=== PATIENT | female | born 1970 | race Caucasian/White ===

== ENCOUNTER 2016-06-17 17:16 | Emergency (ER) | payer OTHER ==
[~2016-06-17] VITALS: Ht 165.1 cm; Wt 81.2 kg
[~2016-06-17 17:16] MED LIST: ALPR1T PO; ATOR40TA PO; CITA10TA7 PO; DOCU100C37 PO; ENAL20TA PO; HYDR-3812 PO; HYDR-3816 PO; HYDR1TAB PO; IBUP-1773 PO; MEDR10TA PO; MV,C400T3 PO; SIME80TA16 PO
[2016-06-17 18:15] LABS: BILIRUBIN,URINE NEGATIVE (NEGATIVE); KETONES,URINE NEGATIVE (NEGATIVE); LEUKOCYTE ESTERASE ,URINE 3+ (NEGATIVE); NITRITE,URINE POSITIVE (NEGATIVE); PH,URINE 6 (5-9); PROTEIN,URINE 2+ (NEGATIVE); UROBILINOGEN,URINE NORMAL (NORMAL)
[2016-06-17] MEDS ORDERED: NS 100 ML (IVPB) BAG IV ONE (18:15)
[2016-06-17] MEDS ORDERED: IOHEXOL 350 MG/ML 100 ML (OMNIPAQUE 350) VIAL IV ONE (18:15)
[2016-06-17 18:23] LABS: SQUAMOUS EPITHELIAL CELL,UR 0-2 /HPF; WBC,URINE TNTC /HPF
--- NOTE | 2016-06-17 18:33 | ED General ---
General Chief Complaint: Fever-Adult/Adol Stated Complaint: IRREGULAR LAB RESULTS Nursing Triage Note: Pt had fever/chills/sweats yesterday. Today, patient had a syncopal episode at work. C/O headache/neck discomfort. Pt went to Urgent Care earlier today which revealed 20.7 WBC. Pt was then referred to the ER. Pt is awake, alert, and active. Hx of robotic hysterectomy on 05-31-16 Nursing Sepsis Screen: No Definite Risk Source of Information: Patient Exam Limitations: No Limitations History of Present Illness Time Seen by Provider: 18:31 Initial Comments To ER with reports of chills, nausea, dizziness and headache and neck ache for the past 2 days. She was seen at urgent care earlier this afternoon and had labs drawn which showed a white blood cell count of 20.7 and she was referred to the emergency room. She had a robotic hysterectomy on 05/31/[address] Mon and reports no problems with that and minimal right flank pain. She reports a chronic cough unchanged in nature no more or less productive than usual, no pharyngitis, no dysuria Associated Systoms: Fever/Chills Headaches Allergies and Home Medications Allergies Coded Allergies: No Known Drug Allergies (Verified , 01/24/07) Home Medications Alprazolam 1 Mg Tablet 1 MG PO BID PRN PRN ANXIETY OR SLEEP (Reported) Atorvastatin Calcium 40 Mg Tablet 40 MG PO HS (Reported) Citalopram Hydrobromide 10 Mg Tablet 10 MG PO DAILY (Reported) Docusate Sodium 100 Mg Capsule #60 100 MG PO BID PRN PRN CONSTIPATION Prescribed by: SATISH MON on 05/31/16945 Enalapril Maleate 20 Mg Tablet 20 MG PO DAILY (Reported) Hydrocodone/Acetaminophen 1 Each Tablet #45 1-2 EA PO Q6H PRN PRN MODERATE PAIN Prescribed by: SATISH MON on 05/31/1646 Ibuprofen 600 Mg Tablet #60 600 MG PO Q6H PRN PRN MILD PAIN Prescribed by: SATISH MON on 05/31/1646 Simethicone 80 Mg Tab.chew #100 40 MG PO TID PRN PRN INDIGESTION Prescribed by: SATISH MON on 05/31/16945 Sulfamethoxazole/Trimethoprim 1 Each Tablet #14 1 EACH PO BID Prescribed by: ANDREIA TORREZ on 06/17/161853 Constitutional: see HPI chills fever EENTM: see HPI Respiratory: no symptoms reported Cardiovascular: no symptoms reported Genitourinary: no symptoms reported Musculoskeletal: no symptoms reported Skin: no symptoms reported Psychiatric/Neurological: No Symptoms Reported Hematologic/Lymphatic: No Symptoms Reported Immunological/Allergic: no symptoms reported Past Bvopcbo-Otsogu-Rwiari Hx Patient Social History Type Used: Cigarettes Recent Foreign Travel: No Contact w/Someone Who Travel: No Recent Infectious Disease Expo: No Recent Hopitalizations: No Seasonal Allergies Seasonal Allergies: No Surgeries HX Surgeries: Yes (STONES IN URETER'S REMOVED VIA OPEN ABD INCISION, ATTEMPTED UTERINE ABLATIO) Surgeries: Section, Gallbladder, Hysterectomy Respiratory Hx Respiratory Disorders: No Cardiovascular Hx Cardiac Disorders: Yes Cardiac Disorders: Hypertension Neurological Hx Neurological Disorders: No Reproductive System : No Hx Reproductive Disorders: Yes Genitourinary Hx Genitourinary Disorders: No Genitourinary Disorders: Kidney Stones Gastrointestinal Hx Gastrointestinal Disorders: No Musculoskeletal Hx Musculoskeletal Disorders: No Endocrine Hx Endocrine Disorders: No HEENT HX ENT Disorders: Yes (GLASSES, BEGINING OF GLAUCOMA) Cancer Hx Cancer: No Psychosocial Hx Psychiatric Problems: No Integumentary HX Skin/Integumentary Disorder: No Blood Transfusions Hx Blood Disorders: No Family Medical History Family Medial History: Cardiovascular disease 19 FATHER 19 MOTHER grandparent Completed stroke grandparent Diabetes mellitus 19 MOTHER Hypertension 19 FATHER 19 MOTHER grandparent Kidney disease grandparent Myocardial infarction 19 MOTHER grandparent Respiratory disorder grandparent Thyroid disease 19 MOTHER Physical Exam Vital Signs Vital Sign - Last 12Hours 06/17/16 17:46 Temp 100.7 Pulse 86 Resp 18 B/P 135/73 O2 Delivery Room Air Capillary Refill : Less Than 3 Seconds General Appearance: No Apparent Distress WD/WN HEENT: PERRL/EOMI TMs Normal Neck: Full Range of Motion Normal Inspection Respiratory: Normal Breath Sounds No Accessory Muscle Use No Respiratory Distress Cardiovascular: Regular Rate, Rhythm Normal Peripheral Pulses Gastrointestinal: Non Tender Soft Tenderness (minimal right flank) Back: CVA Tenderness (R) Extremity: Normal Capillary Refill Normal Inspection Normal Range of Motion Neurologic/Psychiatric: Alert Oriented x3 No Motor/Sensory Deficits Skin: Normal Color Warm/Dry Progress/Results/Core Measures Results/Orders Lab Results Laboratory Tests Test 06/17/16 18:00 06/17/16 18:20 Range/Units Urine Bacteria MODERATE H /HPF Urine Bilirubin NEGATIVE NEGATIVE Urine Casts NONE /LPF Urine Clarity SLIGHTLY CLOUDY Urine Color YELLOW Urine Crystals NONE /LPF Urine Culture Indicated YES Urine Glucose (UA) NEGATIVE NEGATIVE Urine Ketones NEGATIVE NEGATIVE Urine Leukocyte Esterase 3+ H NEGATIVE Urine Mucus NEGATIVE /LPF Urine Nitrite POSITIVE H NEGATIVE Urine Protein 2+ H NEGATIVE Urine RBC 10-25 H /HPF Urine RBC (Auto) 5+ H NEGATIVE Urine Specific [place] 1.010 L 1.016-1.022 Urine Squamous Epithelial Cells 0-2 /HPF Urine Urobilinogen NORMAL NORMAL MG/DL Urine WBC TNTC H /HPF Urine pH 6 5-9 Alanine Aminotransferase (ALT/SGPT) 15 0-55 U/L Albumin 4.0 3.2-4.5 G/DL Alkaline Phosphatase 67 40-136 U/L Anion Gap 12 5-14 MMOL/L Aspartate Amino Transf (AST/SGOT) 13 5-34 U/L BUN/Creatinine Ratio 13 Band Neutrophils 0 % Basophils # (Auto) 0.1 0.0-0.1 10^3/uL Basophils % (Manual) 0 % Basophils (%) (Auto) 0 0-10 % Blood Morphology Comment NORMAL Blood Urea Nitrogen 10 7-18 MG/DL Calcium Level 9.6 8.5-10.1 MG/DL Carbon Dioxide Level 27 21-32 MMOL/L Chloride Level 98 98-107 MMOL/L Creatinine 0.78 0.60-1.30 MG/DL Eosinophils # (Auto) 0.1 0.0-0.3 10^3/uL Eosinophils % (Manual) 0 % Eosinophils (%) (Auto) 0 0-10 % Estimat Glomerular Filtration Rate > 60 Glucose Level 91 70-105 MG/DL Hematocrit 38 35-52 % Hemoglobin 12.8 11.5-16.0 G/DL Lymphocytes # (Auto) 2.9 1.0-4.0 X 10^3 Lymphocytes % (Manual) 21 % Lymphocytes (%) (Auto) 16 12-44 % Mean Corpuscular Hemoglobin 32 25-34 PG Mean Corpuscular Hemoglobin Concent 33 32-36 G/DL Mean Corpuscular Volume 97 80-99 FL Mean Platelet Volume 9.2 7.4-10.4 FL Monocytes # (Auto) 1.8 H 0.0-1.0 X 10^3 Monocytes % (Manual) 4 % Monocytes (%) (Auto) 10 0-12 % Neutrophils # (Auto) 13.9 H 1.8-7.8 X 10^3 Neutrophils % (Manual) 75 % Neutrophils (%) (Auto) 74 42-75 % Platelet Count 409 H 130-400 10^3/uL Potassium Level 3.8 3.6-5.0 MMOL/L Red Blood Count 3.97 L 4.35-5.85 10^6/uL Red Cell Distribution Width 12.7 10.0-14.5 % Sodium Level 137 135-145 MMOL/L Total Bilirubin 0.4 0.1-1.0 MG/DL Total Protein 7.1 6.4-8.2 G/DL White Blood Count 18.8 H 4.3-11.0 10^3/uL My Orders Orders-ANDREIA TORREZ APRN Saline Lock/Iv-Start (06/17/16 17:42) Cbc With Automated Diff (06/17/16 17:42) Comprehensive Metabolic Panel (06/17/16 17:42) Ua Culture If Indicated (06/17/16 17:42) Blood Culture (06/17/16 17:42) Ct Abdomen/Pelvis W (06/17/16 17:58) Ct Head Wo (06/17/16 17:58) Iohexol Injection (Omnipaque 350 Mg/Ml 1 (06/17/16 18:15) Ns (Ivpb) (Sodium Chloride 0.9% Ivpb Bag (06/17/16 18:15) Urine Culture (06/17/16 18:00) Manual Differential (06/17/16 18:20) Medications Given in ED Current Medications Medications Dose Ordered Sig/Krystin Route Start Time Stop Time Status Last Admin Dose Admin Ceftriaxone Sodium/Sodium Chloride 50 ml @ 100 mls/hr ONCE ONCE IV 06/17/16 19:00 06/17/16 19:29 06/17/16 19:01 100 MLS/HR Iohexol 100 ml ONCE ONCE IV 06/17/16 18:15 06/17/16 18:16 DC 06/17/16 18:47 100 ML Sodium Chloride 1,000 ml @ 0 mls/hr Q0M ONCE IV 06/17/16 18:48 06/17/16 18:50 DC 06/17/16 19:00 0 MLS/HR Sodium Chloride 80 ml 80 ml ONCE ONCE IV 06/17/16 18:15 06/17/16 18:16 DC 06/17/16 18:48 80 ML Vital Signs/I&O Vital Sign - Last 12Hours 06/17/16 17:46 Temp 100.7 Pulse 86 Resp 18 B/P 135/73 O2 Delivery Room Air Blood Pressure Mean: 93 Diagnostic Imaging Diagonstic Imaging: CT Comments NAME: ANITA GRAYSON I [facility] REC#: [id number] PT STATUS: REG ER : 1970 PHYSICIAN: ANDREIA TORREZ APRN ADMIT DATE: 06/17/16/ER Signed Date of Exam:06/17/16 CT HEAD WO PROCEDURE: CT head without contrast. TECHNIQUE: Multiple contiguous axial images were obtained through the brain without the use of intravenous contrast. INDICATION: Headache. COMPARISON: None. FINDINGS: No acute intracranial hemorrhage, mass effect, or edema is seen. The concepcion-white junction is preserved. The ventricles appear normal. No focal abnormality is seen. Paranasal sinuses and mastoids are clear, as visualized. IMPRESSION: No evidence of an acute intracranial abnormality. Dictated by: Dictated on workstation # [id number] Dict: 06/17/16 1834 Trans: 06/17/16 1838 AS6 [id number] Interpreted by: FIDENCIO HALL DO Electronically signed by: FIDENCIO HALL DO 06/17/16 1840 NAME: ANITA GRAYSON I [facility] REC#: [id number] PT STATUS: REG ER : 1970 PHYSICIAN: ANDREIA TORREZ APRN ADMIT DATE: 06/17/16/ER Draft Date of Exam:06/17/16 CT ABDOMEN/PELVIS W PROCEDURE: CT abdomen and pelvis with contrast. TECHNIQUE: Multiple contiguous axial images were obtained through the abdomen and pelvis after administration of intravenous contrast. INDICATION: Elevated white count. COMPARISON: 02/27/2012 FINDINGS: The lung bases are clear. There is diffuse hepatic steatosis. No focal hepatic mass is seen. The gallbladder is absent. The portal vein appears patent. The pancreas and spleen appear unremarkable. There is a 2.1 cm left adrenal mass which appears slightly larger than on the prior exam previously measuring 1.7 cm. This shows significant washout of enhancement on the delayed images and is likely a benign adenoma. The right adrenal gland appears unremarkable. The left kidney and ureter appear unremarkable. There is ill-defined hypoattenuation and diminished enhancement of the lateral and inferior right renal cortex with moderate perinephric stranding, most suggestive of pyelonephritis. There is no obstructive change. There is a cyst in the anterior right renal cortex. The uterus is absent. There is no evidence of appendicitis. There is a minimal amount of free fluid in the pelvis. No evidence of bowel obstruction. There is some mild prominence of the small bowel wall with intraluminal fluid possibly to mild ileus. The abdominal aorta appears unremarkable. No acute osseous abnormality is seen. IMPRESSION: 1. The right kidney is abnormal in appearance as described with moderate right perinephric stranding. This is probably related to pyelonephritis. Correlate clinically. Small right renal cyst. 2. Nonspecific small bowel findings may be secondary to mild ileus or enteritis but do not appear obstructed. 3. Diffuse hepatic steatosis. 4. Enlarging left adrenal mass nonspecific but probably a benign adenoma based on the enhancement washout characteristics. Nonemergent unenhanced CT through the adrenal gland may be of additional benefit. Dictated on workstation # [id number] Dict: 06/17/16 1843 Trans: 06/17/16 1855 ANDRES [id number] Interpreted by: FIDENCIO HALL DO Electronically signed by: Departure Communication Progress Notes 185-There is no nuchal rigidity. There is no change in mental status as her conversation is appropriate and very pleasant. She denies nausea but does report poor appetite. She believes that she could take oral antibiotic pills. As such she should be a good candidate for outpatient treatment of her pyelonephritis. Rocephin, 1 L of IV fluids and Toradol will be given here. Impression Impression: Primary Impression: Pyelonephritis Disposition: ADMITTED INPATIENT Condition: Stable Departure-Patient Inst. Decision time for Depature: 18:53 Referrals: SUNITA COY MD (PCP/Family) Primary Care Physician Patient Instructions: Urinary Tract Infection, Adult (DC) Add. Discharge Instructions: 1. Drink lots of fluids 2. Tylenol and Motrin for headaches and fever 3. Antibiotics as directed. You should return to the emergency room if you are vomiting and unable to keep the antibiotics down 4. Follow-up with your doctor next week for recheck and to schedule a repeat CT scan of the left adrenal gland (a hormone producing gland on top of your kidney) as it was a little large on today's CT and warrants follow-up All discharge instructions reviewed with patient and/or family. Voiced understanding. Scripts Cefdinir 300 Mg [id number] Mg PO BID #14 CAP Prov:ANDREIA TORREZ APRN 06/17/16 Copy Copies To 1: SUNITA COY MD, PETER J APRN Jun 17, 2016 18:33 ANDREIA TORREZ APRN Jun 17, 2016 18:33
[2016-06-17 18:38] LABS: BASOPHILS # (AUTO) 0.1 10^3/uL (0.0-0.1); BASOPHILS % (AUTO) 0 % (0-10); EOSINOPHILS # (AUTO) 0.1 10^3/uL (0.0-0.3); EOSINOPHILS % (AUTO) 0 % (0-10); LYMPHOCYTES # (AUTO) 2.9 X 10^3 (1.0-4.0); LYMPHOCYTES % (AUTO) 16 % (12-44); MEAN CORPUSCULAR HEMOGLOBIN 32 PG (25-34); MEAN CORPUSCULAR HGB CONC 33 G/DL (32-36); MEAN CORPUSCULAR VOLUME 97 FL (80-99); MEAN PLATELET VOLUME 9.2 FL (7.4-10.4); MONOCYTES # (AUTO) 1.8 X 10^3 (0.0-1.0); MONOCYTES % (AUTO) 10 % (0-12); NEUTROPHILS # (AUTO) 13.9 X 10^3 (1.8-7.8); NEUTROPHILS % (AUTO) 74 % (42-75); PLATELET COUNT 409 10^3/uL (130-400); RED BLOOD COUNT 3.97 10^6/uL (4.35-5.85); RED CELL DISTRIBUTION WIDTH 12.7 % (10.0-14.5); WHITE BLOOD COUNT 18.8 10^3/uL (4.3-11.0)
--- NOTE | 2016-06-17 18:38 | Diagnostic Imaging Report ---
PROCEDURE: CT head without contrast. TECHNIQUE: Multiple contiguous axial images were obtained through the brain without the use of intravenous contrast. INDICATION: Headache. COMPARISON: None. FINDINGS: No acute intracranial hemorrhage, mass effect, or edema is seen. The concepcion-white junction is preserved. The ventricles appear normal. No focal abnormality is seen. Paranasal sinuses and mastoids are clear, as visualized. IMPRESSION: No evidence of an acute intracranial abnormality. Dictated by: Dictated on workstation # [id number]
[2016-06-17] MEDS ORDERED: KETOROLAC 30 MG/ML VIAL IVP STA (18:47)
[2016-06-17] MEDS ORDERED: NS IV 1000 ML 1,000 ML IV ONE (18:48)
[2016-06-17] MEDS ORDERED: SULF1TAB35 PO (18:54)
[2016-06-17 18:55] LABS: ALANINE AMINOTRANSFERASE 15 U/L (0-55); ANION GAP 12 MMOL/L (5-14); ASPARTATE AMINO TRANSFERASE 13 U/L (5-34); BILIRUBIN,TOTAL 0.4 MG/DL (0.1-1.0); BLOOD UREA NITROGEN 10 MG/DL (7-18); BUN/CREATININE RATIO 13; CALCIUM 9.6 MG/DL (8.5-10.1); CARBON DIOXIDE 27 MMOL/L (21-32); CHLORIDE 98 MMOL/L (98-107); CREATININE SERUM 0.78 MG/DL (0.60-1.30); GFR ESTIMATED > 60; GLUCOSE 91 MG/DL (70-105); POTASSIUM 3.8 MMOL/L (3.6-5.0); SODIUM 137 MMOL/L (135-145); TOTAL PROTEIN 7.1 G/DL (6.4-8.2)
--- NOTE | 2016-06-17 18:55 | Diagnostic Imaging Report ---
PROCEDURE: CT abdomen and pelvis with contrast. TECHNIQUE: Multiple contiguous axial images were obtained through the abdomen and pelvis after administration of intravenous contrast. INDICATION: Elevated white count. COMPARISON: 02/27/2012 FINDINGS: The lung bases are clear. There is diffuse hepatic steatosis. No focal hepatic mass is seen. The gallbladder is absent. The portal vein appears patent. The pancreas and spleen appear unremarkable. There is a 2.1 cm left adrenal mass which appears slightly larger than on the prior exam previously measuring 1.7 cm. This shows significant washout of enhancement on the delayed images and is likely a benign adenoma. The right adrenal gland appears unremarkable. The left kidney and ureter appear unremarkable. There is ill-defined hypoattenuation and diminished enhancement of the lateral and inferior right renal cortex with moderate perinephric stranding, most suggestive of pyelonephritis. There is no obstructive change. There is a cyst in the anterior right renal cortex. The uterus is absent. There is no evidence of appendicitis. There is a minimal amount of free fluid in the pelvis. No evidence of bowel obstruction. There is some mild prominence of the small bowel wall with intraluminal fluid possibly to mild ileus. The abdominal aorta appears unremarkable. No acute osseous abnormality is seen. IMPRESSION: 1. The right kidney is abnormal in appearance as described with moderate right perinephric stranding. This is probably related to pyelonephritis. Correlate clinically. Small right renal cyst. 2. Nonspecific small bowel findings may be secondary to mild ileus or enteritis but do not appear obstructed. 3. Diffuse hepatic steatosis. 4. Enlarging left adrenal mass nonspecific but probably a benign adenoma based on the enhancement washout characteristics. Nonemergent unenhanced CT through the adrenal gland may be of additional benefit. Dictated by: Dictated on workstation # [id number]
[2016-06-17] MEDS ORDERED: cefTRIAXone INJECTION 1,000 MG in NORMAL SALINE (BAXTER MINI) 50 ML IV ONE (19:00)
[2016-06-17 19:04] LABS: BAND NEUTROPHILS 0 %; BASOPHILS % (MANUAL) 0 %; EOSINOPHILS % (MANUAL) 0 %; LYMPHOCYTES % (MANUAL) 21 %; NEUTROPHILS % (MANUAL) 75 %
[2016-06-17] MEDS ORDERED: CEFD300C3 PO (19:25)
[2016-06-17 19:39] VITALS: BP 146/89
== END 2016-06-17 19:33 | disposition home or self-care (01) ==
LOC: EDUNIT# 17:16 → ER 17:18
DX: N12 Tubulo-interstitial nephritis, not specified as acute or chronic (principal); R42 Dizziness and giddiness; R51 Headache; K76.0 Fatty (change of) liver, not elsewhere classified; N28.1 Cyst of kidney, acquired; E27.8 Other specified disorders of adrenal gland
CPT/HCPCS: 36415; 70450; 74177; 80053; 81000; 85007; 85027; 87040; 87088; 87186; 96365; 96375

== ENCOUNTER 2016-07-04 22:03 | Emergency (ER) | payer OTHER ==
[~2016-07-04] VITALS: Ht 165.1 cm; Wt 81.4 kg
[~2016-07-04 22:03] MED LIST changes: +CEFD300C3 PO; +SULF1TAB35 PO
[2016-07-04] MEDS ORDERED: SOY155CA PO (22:21)
[2016-07-04 23:10] LABS: BILIRUBIN,URINE NEGATIVE (NEGATIVE); KETONES,URINE NEGATIVE (NEGATIVE); LEUKOCYTE ESTERASE ,URINE 2+ (NEGATIVE); NITRITE,URINE POSITIVE (NEGATIVE); PH,URINE 6 (5-9); PROTEIN,URINE 3+ (NEGATIVE); UROBILINOGEN,URINE 1 MG/DL (NORMAL)
[2016-07-04 23:20] LABS: WBC,URINE 25-50 /HPF
[2016-07-04] MEDS ORDERED: KETOROLAC 60 MG/2 ML VIAL IM STA (23:35)
[2016-07-04] MEDS ORDERED: LEVOFLOXACIN 500 MG TAB (LEVAQUIN) PO STA (23:35)
[2016-07-04] MEDS ORDERED: LEVO500T2 PO (23:40)
[2016-07-04] MEDS ORDERED: KETO10TA PO (23:40)
[2016-07-04] MEDS ORDERED: ORPH100T PO (23:40)
--- NOTE | 2016-07-04 23:40 | ED Back Pain ---
General Chief Complaint: Back Problems Stated Complaint: LIGHTHEADED, BACK PAIN Nursing Triage Note: pt reports on 06/17/16 she passed out shile at work. was evaluated for heart complications and told everything came back ok. Pt reports her lab work indicated she had a Kidney infection and was given iv antibiotics. pt reports she finished her home antibiotics and had been feeling better and then bent over this evening and felt a shooting pain on her l side/back. 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 AND STOOD UP AND THEN BENT OVER AND HAD SUDDEN LEFT FLANK PAIN THEN "EVERYTHING GOT TINGLY" AND SHE GOT LIGHTHEADED--THOSE SYMPTOMS HAVE RESOLVED PT HAS NOT TAKEN ANYTHING FOR PAIN NO RADIATION OF PAIN PAIN IS MUCH WORSE WITH MOVEMENTS NO PARESTHESIAS OR MOTOR DEFICITS NO NAUSEA/VOMITING NO COUGH OR FEVER PT WAS SEEN HERE 06/17/16 AFTER HAVING A SYNCOPAL EPISODE AND WAS FOUND TO HAVE PYELONEPHRITIS--PT HAS NOT HAD ANY URINARY SYMPTOMS WAS PLACED ON BACTRIM AND CEFDINIR--STATES SHE TOOK BOTH OF THESE MEDICATIONS, AND DID NOT MISS DOSES HAS NOT FOLLOWED UP WITH ANYONE SINCE THAT VISIT PT HAD ROBOTIC HYSTERECTOMY 05/31/[address] MON. HAS NOT HAD ANY PROBLEMS FROM THAT SURGERY, OTHER THAN POSSIBLY THE UTI Other Comments PCP: DR. COY Allergies and Home Medications Allergies Coded Allergies: No Known Drug Allergies (Verified , 01/24/07) Home Medications Alprazolam 1 Mg Tablet 1 MG PO BID PRN PRN ANXIETY OR SLEEP (Reported) Atorvastatin Calcium 40 Mg Tablet 40 MG PO HS (Reported) Citalopram Hydrobromide 10 Mg Tablet 10 MG PO DAILY (Reported) Enalapril Maleate 20 Mg Tablet 20 MG PO DAILY (Reported) Ibuprofen 600 Mg Tablet #60 600 MG PO Q6H PRN PRN MILD PAIN Prescribed by: SATISH MON on 05/31/16 0946 Ketorolac Tromethamine 10 Mg Tablet #15 10 MG PO Q6H Prescribed by: MILTON ORTEZ on 07/04/16 2340 Levofloxacin 500 Mg Tablet #14 500 MG PO DAILY Prescribed by: MILTON ORTEZ on 07/04/16 2340 Orphenadrine Citrate 100 Mg Tablet.er #14 100 MG PO BID FOR MUSCLE SPASMS Prescribed by: MILTON ORTEZ on 07/04/16 2340 Soy Isofla/Blk Cohosh/Mag Bark 155 Mg Capsule 155 MG PO (Reported) Constitutional: see HPI dizziness EENTM: no symptoms reported Respiratory: no symptoms reported Cardiovascular: no symptoms reported Gastrointestinal: no symptoms reported Genitourinary: see HPINo dysuria Musculoskeletal: see HPI back pain Skin: no symptoms reported Psychiatric/Neurological: No Symptoms Reported Past Eigbajk-Inqyyl-Qagjpu Hx Patient Social History Alcohol Use: Denies Use Recreational Drug Use: No Smoking Status: Current Everyday Smoker (06/14 PPD) Type Used: Cigarettes Recent Foreign Travel: No Contact w/Someone Who Travel: No Recent Infectious Disease Expo: No Recent Hopitalizations: No Physical Abuse Screen: No Sexual Abuse: No Seasonal Allergies Seasonal Allergies: No Surgeries HX Surgeries: Yes (STONES IN URETER'S REMOVED VIA OPEN ABD INCISION, ATTEMPTED UTERINE ABLATION) Surgeries: Section, Gallbladder, Hysterectomy, Renal Respiratory Hx Respiratory Disorders: No Cardiovascular Hx Cardiac Disorders: Yes Cardiac Disorders: Hypertension Neurological Hx Neurological Disorders: No Reproductive System Hx Reproductive Disorders: Yes Female Reproductive Disorders: Endometriosis [employer] History: Hysterectomy Genitourinary Hx Genitourinary Disorders: Yes Genitourinary Disorders: Kidney Stones Gastrointestinal Hx Gastrointestinal Disorders: No Musculoskeletal Hx Musculoskeletal Disorders: No Endocrine Hx Endocrine Disorders: No HEENT HX ENT Disorders: Yes (GLASSES, BEGINING OF GLAUCOMA) Cancer Hx Cancer: No Psychosocial Hx Psychiatric Problems: No Integumentary HX Skin/Integumentary Disorder: No Blood Transfusions Hx Blood Disorders: Yes (ANTI-Fya) Adverse Reaction to a Blood Tr: No Family Medical History Family Medial History: Cardiovascular disease 19 FATHER 19 MOTHER grandparent Completed stroke grandparent Diabetes mellitus 19 MOTHER Hypertension 19 FATHER 19 MOTHER grandparent Kidney disease grandparent Myocardial infarction 19 MOTHER grandparent Respiratory disorder grandparent Thyroid disease 19 MOTHER Physical Exam Vital Signs Vital Sign - Last 12Hours 07/04/16 22:11 Temp 97.9 Pulse 81 Resp 16 B/P 106/62 Pulse Ox 96 Capillary Refill : Less Than 3 Seconds General Appearance: No Apparent Distress WD/WN Neck: Normal Inspection Cardiovascular: Regular Rate, Rhythm No Edema No JVD No Murmur Normal Peripheral Pulses Respiratory: Normal Breath Sounds No Accessory Muscle Use No Respiratory Distress Gastrointestinal: Normal Bowel Sounds No Organomegaly No Pulsatile Mass Non Tender Soft Back: No Vertebral Tenderness Other (MARKED TENDERNESS TO LEFT POSTERIOR RIB AREA--PALPATION TO THIS AREA DRAMATICALLY REPRODUCES PAIN DOES ANY MOVEMENT. NO TENDERNESS IN FLANK AREA. NO RASH) Extremity: Normal Inspection Neurologic/Psychiatric: Alert Oriented x3 No Motor/Sensory Deficits Normal Mood/Affect founding partner II-XII Norm as Tested Skin: Normal Color Warm/DryNo Rash Progress/Results/Core Measures Results/Orders Lab Results Laboratory Tests Test 07/04/16 23:00 Range/Units Urine Bacteria LARGE H /HPF Urine Bilirubin NEGATIVE NEGATIVE Urine Casts NONE /LPF Urine Clarity VERY CLOUDY H Urine Color YELLOW Urine Crystals NONE /LPF Urine Culture Indicated YES Urine Glucose (UA) NEGATIVE NEGATIVE Urine Ketones NEGATIVE NEGATIVE Urine Leukocyte Esterase 2+ H NEGATIVE Urine Mucus LARGE H /LPF Urine Nitrite POSITIVE H NEGATIVE Urine Protein 3+ H NEGATIVE Urine RBC 0-2 /HPF Urine RBC (Auto) 2+ H NEGATIVE Urine Specific [place] 1.020 1.016-1.022 Urine Squamous Epithelial Cells 2-5 /HPF Urine Urobilinogen 1 NORMAL MG/DL Urine WBC 25-50 H /HPF Urine pH 6 5-9 My Orders Orders-MILTON ORTEZ DO Ua Culture If Indicated (07/04/16 22:53) Chest Pa/Lat (2 View) (07/04/16 22:53) Ribs, Left 2-3 Views (07/04/16 22:53) Urine Culture (07/04/16 23:00) Ceftriaxone Injection (Rocephin Injectio (07/04/16 23:45) Levofloxacin Tablet (Levaquin Tablet) (07/04/16 23:35) Ketorolac Injection (Toradol Injection) (07/04/16 23:35) Lidocaine 1% Injection (Xylocaine 1% Inj (07/04/16 23:45) Orphenadrine Injection (Norflex Injectio (07/04/16 23:45) Medications Given in ED Current Medications Medications Dose Ordered Sig/Krystin Route Start Time Stop Time Status Last Admin Dose Admin Ceftriaxone Sodium 1,000 mg ONCE ONCE IM 07/04/16 23:45 1 23:46 DC 07/04/16 23:50 1,000 MG Lidocaine HCl 2.1 ml ONCE ONCE INJ 07/04/16 23:45 07/04/16 23:46 DC 07/04/16 23:51 2.1 ML Orphenadrine Citrate 60 mg ONCE ONCE IM 07/04/16 23:45 07/04/16 23:46 DC 07/04/16 23:50 60 MG Vital Signs/I&O Vital Sign - Last 12Hours 07/04/16 07/05/16 22:11 00:10 Temp 97.9 97.9 Pulse 81 81 Resp 16 16 B/P 106/62 Pulse Ox 96 96 Blood Pressure Mean: 77 Departure Impression Impression: Primary Impression: PERSISTENT UTI Additional Impressions: Left flank pain Musculoskeletal pain Disposition: HOME, SELF-CARE Condition: Stable Departure-Patient Inst. Referrals: SUNITA COY MD (PCP/Family) Primary Care Physician Patient Instructions: Muscle Strain (DC), Urinary Tract Infection, Adult (DC) Add. Discharge Instructions: MOIST HEAT TO SORE AREA AT 20 MINUTE INTERVALS LOTS OF CLEAR LIQUIDS--NO COFFEE, POP OR TEA FOLLOW UP WITH DR. COY THIS WEEK SCHEDULED. All discharge instructions reviewed with patient and/or family. Voiced understanding. Scripts Orphenadrine Citrate 100 Mg Tablet.er100 Mg PO BID #14 TAB FOR MUSCLE SPASMS Prov:MILTON ORTEZ DO 07/04/16 Levofloxacin (Levaquin)500 Mg [id number] Mg PO DAILY INFECTION #14 TAB Prov:MILTON ORTEZ DO 07/04/16 Ketorolac Tromethamine 10 Mg [id number] Mg PO Q6H Pain #15 TAB Prov:MILTON ORTEZ DO 07/04/16 Images Torso/Trunk 1 - Tenderness MILTON ORTEZ DO Jul 04, 2016 23:40
[2016-07-04] MEDS ORDERED: LIDOCAINE 1% INJ 20 ML (XYLOCAINE) VIAL INJ ONE (23:45)
[2016-07-04] MEDS ORDERED: cefTRIAXone 1 GM (ROCEPHIN) VIAL IM ONE (23:45)
[2016-07-04] MEDS ORDERED: ORPHENADRINE 60 MG/2 ML (NORFLEX) AMP IM ONE (23:45)
[2016-07-05 00:10] VITALS: BP 106/62
--- NOTE | 2016-07-05 07:38 | Diagnostic Imaging Report ---
INDICATION: Chest pain. PA and lateral chest. Heart size and pulmonary vascularity are normal. Lungs are clear. There are no effusions or pneumothoraces. IMPRESSION: Negative chest. Dictated by: Dictated on workstation # [id number]
--- NOTE | 2016-07-05 07:38 | Diagnostic Imaging Report ---
INDICATION: Left rib pain from injury. 3 views of the left ribs do not show any displaced fractures. There are no effusions or pneumothoraces. IMPRESSION: Negative left ribs. Dictated by: Dictated on workstation # [id number]
== END 2016-07-05 00:13 | disposition home or self-care (01) ==
LOC: EDUNIT# 22:03 → ER 22:04
DX: N39.0 Urinary tract infection, site not specified (principal); R10.32 Left lower quadrant pain; I10 Essential (primary) hypertension; F17.210 Nicotine dependence, cigarettes, uncomplicated; Z79.899 Other long term (current) drug therapy
CPT/HCPCS: 71020; 71100; 81000; 87088; 87186; 96372

== ENCOUNTER → 2016-11-23 | Outpatient (CLI) | payer BC, OTHER ==
[~2016-11-23] MED LIST changes: +KETO10TA PO; +LEVO500T2 PO; +ORPH100T PO; +SOY155CA PO
--- NOTE | 2016-11-25 17:37 | Diagnostic Imaging Report ---
Bilateral screening mammogram The current study was also evaluated with a Computer Aided Detection (CAD) system. Indication: Screening. No current complaints stated on the questionnaire. COMPARISON: 02/10/15 Findings: The breasts are composed of scattered fibroglandular densities. There are scattered the benign-appearing calcifications Allowing for technique and positional differences, no suspicious change is seen. IMPRESSION: No significant change. ACR BI-RADS Category 2: Benign findings. Result letter will be mailed to the patient. Note: At least 10% of breast cancer is not imaged by mammography. Dictated by: Dictated on workstation # [id number]
== END ==
LOC: RAD 12:57
PROVIDERS: ATTEND Obstetrics & Gynecology
DX: Z12.31 Encounter for screening mammogram for malignant neoplasm of breast (principal)
CPT/HCPCS: 77067

== ENCOUNTER → 2017-01-14 | Outpatient (CLI) | payer BC | LOC: LAB 19:31 | PROVIDERS: ATTEND Nurse Practitioner Family | DX: N30.01 Acute cystitis with hematuria (principal) | CPT/HCPCS: 87088 ==

== ENCOUNTER → 2018-09-06 | Outpatient (CLI) | payer BC ==
[~2018-09-06] MED LIST changes: +ACHD5005 PO; +HYDR-34 PO; -HYDR-3812 PO; -HYDR-3816 PO
[2018-09-06 17:12] VITALS: BP 128/80
--- NOTE | 2018-09-06 17:12 | Cardiology Stress Test Report ---
Stress Test Report Date of Procedure/Referring: Date of Procedure: Sep 06, 2018 PCP Hillary Oh MD Admitting Physician Jey Parham MD Indications: Chest pain Baseline Heart Rate: 66 Baseline Blood Pressure: Blood Pressure Systolic: 128 Blood Pressure Diastolic: 80 Baseline EKG: Baseline EKG: normal sinus rhythm Summary/Conclusion: Summary: In summary, the patient started exercising with a baseline heart rate, blood pressure and EKG mentioned above Patient was able to exercise for a total of 6:30 minutes on Hira protocol, 7.9 METs Maximum heart rate 159 Maximum blood pressure 242/81 Stress EKG Minimal nondiagnostic changes Recovery EKG Return to baseline Conclusion: 1. Good exercise tolerance for a total of 6:30 minutes on Hira protocol, 7.9 METs, achieving 92 percent of maximum expected heart rate 2. Minimal nondiagnostic EKG changes with exercise returned to baseline during recovery 3. No arrhythmia was noted 4. Severe hypertensive response to exercise returned to baseline during recovery HILLARY OH MD Sep 06, 2018 17:12
== END ==
LOC: CARD 13:32
PROVIDERS: ATTEND Internal Medicine Cardiovascular Disease
DX: E78.2 Mixed hyperlipidemia (principal); I10 Essential (primary) hypertension; R06.09 Other forms of dyspnea; Z82.49 Family history of ischemic heart disease and other diseases of the circulatory system
CPT/HCPCS: 93017

== ENCOUNTER → 2019-03-19 | Outpatient (CLI) | payer BC ==
--- NOTE | 2019-03-19 12:04 | Diagnostic Imaging Report ---
INDICATION: Routine screening. COMPARISON: 11/23/2016 and 02/10/2015. TECHNIQUE: 2D and 3D bilateral screening mammography was performed with CAD. FINDINGS: Scattered fibroglandular densities are identified bilaterally. The parenchymal pattern is stable. No mass or malignant appearing microcalcifications are seen. The axillae are unremarkable. IMPRESSION: No mammographic features suspicious for malignancy are identified. ACR BI-RADS Category 1: Negative. Result letter will be mailed to the patient. Note: At least 10% of breast cancer is not imaged by mammography. Dictated by: Dictated on workstation # [id number]
== END ==
LOC: RAD 09:34
PROVIDERS: ATTEND Family Medicine
DX: Z12.31 Encounter for screening mammogram for malignant neoplasm of breast (principal)
CPT/HCPCS: 77067

== ENCOUNTER → 2020-03-21 | Outpatient (CLI) | payer BC ==
[~2020-03-21] MED LIST changes: -ENAL20TA PO; +ENAL20TA16 PO
--- NOTE | 2020-03-21 14:54 | Diagnostic Imaging Report ---
INDICATION: Routine screening. COMPARISON is made with prior mammograms of 03/19/2019 and 11/23/2016. 2-D and 3-D bilateral screening mammography was performed with CAD. Scattered fibroglandular densities are identified bilaterally. The parenchymal pattern is stable. No mass or malignant appearing microcalcifications are seen. Axillae are unremarkable. IMPRESSION: BI-RADS Category 1 No mammographic features suspicious for malignancy are identified. ACR BI-RADS Category 1: Negative. Result letter will be mailed to the patient. Note: At least 10% of breast cancer is not imaged by mammography. Dictated by: Dictated on workstation # [id number]
== END ==
LOC: RAD 09:35
PROVIDERS: ATTEND Internal Medicine
DX: Z12.31 Encounter for screening mammogram for malignant neoplasm of breast (principal)
CPT/HCPCS: 77063; 77067

== ENCOUNTER → 2021-03-27 | Outpatient (CLI) | payer BC ==
[~2021-03-27] MED LIST changes: -SULF1TAB35 PO; +SULF1TAB38 PO
--- NOTE | 2021-03-27 15:48 | Diagnostic Imaging Report ---
INDICATION: Routine screening. COMPARISON: Prior mammograms from 07/22/2019 and 03/19/2019. EXAMINATION: 2D and 3D bilateral screening mammography was performed with CAD. The current study was also evaluated with a Computer Aided Detection (CAD) system. FINDINGS: Scattered fibroglandular densities are identified, bilaterally. The parenchymal pattern is stable. No mass or malignant-appearing microcalcifications are seen. Axillae are unremarkable. IMPRESSION: No mammographic features suspicious for malignancy are identified. ACR BI-RADS Category 1: Negative. Result letter will be mailed to the patient. Note: At least 10% of breast cancer is not imaged by mammography. Dictated by: Dictated on workstation # [id number]
== END ==
LOC: RAD 09:15
PROVIDERS: ATTEND Internal Medicine
DX: Z12.31 Encounter for screening mammogram for malignant neoplasm of breast (principal)
CPT/HCPCS: 77063; 77067

== ENCOUNTER → 2022-01-13 | Outpatient (CLI) | payer BC ==
[~2022-01-13] VITALS: Ht 165.1 cm; Wt 92.7 kg
[~2022-01-13] MED LIST changes: -CITA10TA7 PO; +CITA10TA9 PO; +PRAV20TA3 PO
== END | disposition home or self-care (01) ==
LOC: PREOP 06:19
PROVIDERS: ATTEND Surgery
DX: Z01.818 Encounter for other preprocedural examination (principal)

== ENCOUNTER 2022-01-20 09:11 | Day surgery (SDC) | payer BC ==
[~2022-01-20] VITALS: Ht 165 cm; Wt 92.7 kg
[2022-01-20] MEDS ORDERED: LACTATED RINGERS 1,000 ML IV STA (09:24)
[2022-01-20] MEDS ORDERED: LACTATED RINGERS 1,000 ML IV ONE (09:28)
[2022-01-20] MEDS ORDERED: LIDOCAINE JELLY 2% 6 ML SYRINGE MM PRN (09:30)
[2022-01-20] MEDS ORDERED: MIDAZOLAM 2 MG/2 ML (VERSED) VIAL ONE (09:49)
[2022-01-20] MEDS ORDERED: PROPOFOL INJECTION 50 ML IV ONE (09:49)
--- NOTE | 2022-01-20 09:56 | Progress Note-Pre Operative ---
Pre-Operative Progress Note Date of Available H&P: Jan 20, 2022 Date H&P Reviewed: Jan 20, 2022 Time H&P Reviewed: 09:30 History & Physical: No changes noted Changes from last HP Pre-Operative Diagnosis: screening o TAYLOR NAVARRETE MD Jan 20, 2022 09:56
[2022-01-20] MEDS ORDERED: ONDANSETRON 4 MG/2 ML (SDV) Z0FRAN IVP PRN (10:00)
[2022-01-20] MEDS ORDERED: ONDANSETRON 4 MG (ZOFRAN) ORAL DISSOLVE TAB PO PRN (10:00)
--- NOTE | 2022-01-20 10:01 | Discharge Inst-Surgical ---
D/C Lap Instructions-ROSALBA Follow Up Activity as tolerated High Fiber Diet 25g or more per day Avoid Alcohol, Caffeine, Spicy [place] and Acid foods. Drink 64 fluid oz or more of fluids per day. Symptoms to Report: Fever over 101 degree F, Nausea/Vomiting If any problems/questions: Contact your physician or go to Emergency Room TAYLOR NAVARRETE MD Jan 20, 2022 10:01
[2022-01-20 10:35] VITALS: BP 102/57
--- NOTE | 2022-01-20 11:07 | Progress Note-Post Operative ---
Post-Operative Progess Note Surgeon (s)/Corporate Training Manager (s) Surgeon TAYLOR NAVARRETE MD Corporate Training Manager: none Pre-Operative Diagnosis screening colo Post-Operative Diagnosis chronic stage 2 ext and int hemorrhoids, mild sigmoid diverticulosis. Procedure & Operative Findings Date of Procedure 01/20/22 Procedure Performed/Findings colonoscopy with forcep bx Anesthesia Type mac Estimated Blood Loss Estimated blood loss (mL): minimal Specimens/Packing Specimens Removed rectal polyp TAYLOR NAVARRETE MD Jan 20, 2022 11:07
[2022-01-20 11:09] VITALS: BP 102/57
--- NOTE | 2022-01-20 12:10 | Anesthesia-General Post-Op ---
MAC Patient Condition Mental Status/LOC: Same as Preop Cardiovascular: Satisfactory Nausea/Vomiting: Absent Respiratory: Satisfactory Pain: Controlled Complications: Absent Post Op Complications Complications None Follow Up Care/Instructions Patient Instructions None needed. Anesthesiology Discharge Order Discharge Order Patient was doing well this morning after the procedure, no complaints, stable vital signs, no apparent adverse anesthesia problems. No complications reported per nursing. EULALIA KIDD DO Jan 20, 2022 12:10
--- NOTE | 2022-01-20 22:16 | OPERATIVE REPORT ---
DATE OF SERVICE: 01/20/2022 PRIMARY CARE PHYSICIAN: Blanca Fernandez DO PREOPERATIVE DIAGNOSIS: Screening colonoscopy. POSTOPERATIVE DIAGNOSES: Chronic stage II external and internal hemorrhoids; small hyperplastic polyp of the rectum, 2 mm in size; mild sigmoid diverticulosis. PROCEDURE: Colonoscopy with polypectomy. SURGEON: Taylor Tineo MD. ANESTHESIA: Monitored anesthesia care. ESTIMATED BLOOD LOSS: Minimal. FINDINGS: Chronic stage II external and internal hemorrhoids; small hyperplastic polyp of the rectum, 2 mm in size; mild sigmoid diverticulosis. DISPOSITION: The patient tolerated the procedure well. INDICATIONS: The patient is a 51-year-old female referred over to us for screening colonoscopy. She states that she has had some issues with hemorrhoidal flareups at times. She also does have occasional episodes of loose stools. No red blood per rectum nor dark tarry stools. She also does not report any family history of colon cancer. DESCRIPTION OF PROCEDURE: The patient was brought to the endoscopy suite and laid in the left lateral decubitus position. After adequate IV pain and sedative medications and monitored anesthesia care, a digital rectal examination was performed. Chronic stage II external and internal hemorrhoids identified, which were not actively edematous nor inflamed and no bleeding. Normal sphincter tone was felt and there were no palpable masses. The endoscope was then intubated into the anus and rectum gently insufflated. The endoscope was then advanced to the valves of Michael of the rectum where a small hyperplastic polyp approximately 2 mm in size was identified and this was biopsied and destroyed with forceps with visualization of good hemostasis. The endoscope was then advanced through the sigmoid colon where mild sigmoid diverticulosis identified. We then proceeded through the descending, transverse and ascending colon to the cecum with no additional findings. The patient tolerated the procedure well. We will recommend necessary lifestyle and dietary accommodation including high fiber diet with addition of a fiber supplement, which should equal or exceed 25 grams daily as well as significant amounts of water to promote soft consistency stools on a daily basis. If this is a verified hyperplastic polyp, she does not need another colonoscopy for another 10 years. Job ID: [id number] DocumentID: [id number] Dictated Date: 01/20/2022 10:34:33 Visitor Services Representative Date: 01/20/2022 19:24:30 Dictated By: TAYLOR TINEO MD [facility]
== END 2022-01-20 11:09 | disposition home or self-care (01) ==
LOC: ENDO 09:11
PROVIDERS: ATTEND Surgery
DX: K62.1 Rectal polyp (principal); K57.30 Diverticulosis of large intestine without perforation or abscess without bleeding; K64.1 Second degree hemorrhoids; K64.8 Other hemorrhoids; F17.210 Nicotine dependence, cigarettes, uncomplicated

== ENCOUNTER → 2022-04-21 | Outpatient (CLI) | payer BC | LOC: CARD 10:00 | PROVIDERS: ATTEND Physician Assistant | DX: I35.1 Nonrheumatic aortic (valve) insufficiency (principal); I10 Essential (primary) hypertension | CPT/HCPCS: 93306 ==

== ENCOUNTER → 2022-07-07 | Outpatient (CLI) | payer BC ==
--- NOTE | 2022-07-07 11:48 | Diagnostic Imaging Report ---
Clinical Indication: Patient with carotid stenosis bilaterally. Comparison: None Exam: Real-time ultrasound carotid Doppler duplex imaging is performed bilaterally with multiple real-time grayscale images obtained in various projections. Additional spectral analysis and color Doppler duple images were also obtained. Peak systolic velocity, ICA/CCA peak systolic ratio, spectral analysis, and vascular morphology are studied. Findings: ARTERY VELOCITY Right Left CCA 1.09 m/s 0.97 m/s ICA 0.93 m/s 1.46 m/s ECA 1.11 m/s 1.02 m/s ICA/CCA 0.9 1.5 VERT.ART Antegrade Antegrade There is minimal atherosclerotic disease seen bilaterally. Impression: There is no grayscale or Doppler evidence of significant vascular stenosis. Dictated by: Dictated on workstation # [id number]
--- NOTE | 2022-07-07 12:46 | Diagnostic Imaging Report ---
INDICATION: Routine screening. Comparison is made with prior mammogram 03/27/2021 and 03/21/2020. 2-D and 3-D bilateral screening mammography was performed with CAD. Scattered fibroglandular densities are identified bilaterally. No mass or malignant-appearing microcalcifications are seen. Axillae are unremarkable. IMPRESSION: No mammographic features suspicious for malignancy are identified. ACR BI-RADS Category 1: Negative. Result letter will be mailed to the patient. Note: At least 10% of breast cancer is not imaged by mammography. BI-RADS Category 1 Dictated by: Dictated on workstation # [id number]
== END ==
LOC: RAD 09:23
PROVIDERS: ATTEND Internal Medicine
DX: Z12.31 Encounter for screening mammogram for malignant neoplasm of breast (principal)
CPT/HCPCS: 77063; 77067; 93880